=== PATIENT | male | born 1975 | race Caucasian/White ===

== ENCOUNTER 2017-03-07 11:00 | Emergency (ER) | payer OTHER ==
[~2017-03-07] VITALS: Ht 157.5 cm; Wt 101.2 kg
[~2017-03-07 11:00] MED LIST: FAMO-96 PO; IBUP400T22 PO
[2017-03-07 11:02] VITALS: Ht 157.5 cm; Wt 101.2 kg
--- NOTE | 2017-03-07 12:03 | ERD ---
ER Documentation Chief Complaint Chief Complaint Complains of left eye redness and sweeling HPI 41-year-old male, previously healthy, presents to the emergency department complaining of 1 day with progressive onset of left eye redness, itchiness and lower eyelid swelling. The patient denies any trauma. No blurred vision, no fevers, no chills. He does not wear contact lenses. ROS All systems reviewed and are negative except as per history of present illness. Medications Home Meds Active Scripts Famotidine* (Pepcid*) 20 Mg Tablet, 20 MG PO DAILY, #30 TAB Prov:NADJA ROBERTS MD 09/27/14 Ibuprofen* (Motrin*) 400 Mg Tab, 400 MG PO Q6, #30 TAB Prov:NADJA ROBERTS MD 09/27/14 Allergies Allergies: Coded Allergies: No Known Allergy (Unverified , 09/27/14) PMhx/Soc Medical and Surgical Hx: pt denies Medical Hx, pt denies Surgical Hx Hx Alcohol Use: No Hx Substance Use: No Hx Tobacco Use: No Physical Exam Vitals Vital Signs Date Time Temp Pulse Resp B/P Pulse Ox O2 Delivery O2 Flow Rate FiO2 03/07/17 11:02 98.8 82 20 172/96 98 Physical Exam Patient is in no acute distress, vital signs stable. Alert and fully oriented. EYES: PERRLA, EOMI, left lower eyelid: Erythematous nodule, 2 mm EARS: Canals clear, tympanic membranes WNL THROAT: Normal oropharynx. NECK: Supple, No lymphadenopathy. Full ROM without pain or tenderness. HEART: RRR, no rubs, murmurs, clicks or gallops. LUNGS: Clear to auscultation. ABDOMEN: Soft, non-tender without masses or hepatosplenomegaly. EXTREMITIES: No edema bilaterally. BACK: Full ROM, no deformity, normal back exam NEURO: Cranial nerves grossly intact, no motor or sensory deficit Results 24 hrs Current Medications Medications (Trade) Dose Ordered Sig/Keeley Route PRN Reason Start Time Stop Time Status Last Admin Dose Admin Erythromycin (Erythromycin Oph Oint) 1 applic ONCE ONCE LEFT EYE 03/07/17 12:30 03/07/17 12:31 Procedures/MDM 41-year-old male, presents to the ED for evaluation and management of painful left eyelid nodule. Vital signs stable, Physical exam revealed a 2 mm erythematous nodule on lower eyelid of the left eye. Differential diagnosis include but not limited to: Conjunctivitis, dermatitis, chalazion, foreign body. Low suspicion for iritis, corneal ulcer. Physical examination and clinical presentation consistent most likely with left eye hordeolum. During the ED course the patient remained stable, no new complaints. The patient received treatment with erythromycin ophthalmic presenting overall improvement of the symptoms. Results and clinical impression discussed with patient who agrees with management. The patient is stable to be treated outpatient and will be discharged home with a Rx for erythromycin ophthalmic, some side effects of prescribed medications (headache, rash, nausea, vomiting, diarrhea, drowsiness, habituation, bleeding, hypertension, interactions with other medications) were reviewed. The patient was instructed to follow up with the primary care provider in the next 48h. If symptoms persist, worsen or new symptoms develop, then patient should return to the ED immediately. Instructions explained and given directly by me to the patient in Vietnamese with acknowledgment and demonstrated understanding. Disclaimer: Inadvertent spelling and grammatical errors are likely due to EHR/ dictation software use and do not reflect on the overall quality of patient care. Also, please note that the electronic time recorded on this note does not necessarily reflect the actual time of the patient encounter. Departure Condition: Stable Additional Instructions: Call your primary care doctor TOMORROW for an appointment during the next 1-2 days. See the doctor sooner or return here if your condition worsens before your appointment time. Thank you very much for allowing us to participate in your care. Your health and safety is our top priority at [facility]. Have prescriptions filled and follow precisely the directions on the label. Follow-up with primary care provider during the next 4 days and bring all the information and medications prescribed. If illness has not improved in 2 days, then make an appointment with primary care provider. If the provider is unavailable, return to the Emergency Department immediately. ANDRESSA ARNOLD MD Mar 07, 2017 12:03
[2017-03-07] MEDS ORDERED: ERYTHROMYCIN 1 GM OPH OINT LEFT EYE ONE (12:30)
== END 2017-03-07 12:47 | disposition home or self-care (01) ==
LOC: FTE 11:00
DX: H57.8 Other specified disorders of eye and adnexa (principal)
CPT/HCPCS: Z7502; Z7610; 99283